=== PATIENT | male | born 1955 | race Caucasian/White ===

== ENCOUNTER 2017-11-14 10:20 | Outpatient (CLI) | payer BC ==
--- NOTE | 2017-11-14 13:14 | CT ---
CT ABDOMEN AND PELVIS WITH AND WITHOUT IV CONTRAST: HISTORY: Hematuria. Microhematuria. FINDINGS: The lung bases are clear. There are a few tiny, low density lesions in the liver, likely cysts, the largest measuring about 18 mm and located in the left lobe of the liver. No calcified gallstones are seen. The spleen, pancreas, and adrenal glands are normal. No free air, free fluid, or lymphadenop athy is seen in the abdomen or pelvis. No calculi are noted in the kidneys, ureters, or urinary bladder. Post contrast images demonstrate n o evidence of an enhancing solid mass. There are small, low density lesions in the left kidney, the largest measuring 1 cm, likely cysts. The prostate is enlarged. The small bowel loops are not abnormally dilated. There is fecal material in the colon. There are v ascular calcifications without evidence of aneurysmal dilatation of the abdominal aorta. There are d egenerative changes in the spine. There is a small fat-containing inguinal hernia. IMPRESSION: 1. No CT evidence of urinary tract calculi or obstruction. 2. Probable hepatic and left renal cysts. 3. Prostatic enlargement. POS: [facility]
== END 2017-11-14 10:21 | disposition home or self-care (01) ==
LOC: SCSCT 10:20
PROVIDERS: ATTEND Urology
DX: R31.29 Other microscopic hematuria (principal); N40.0 Benign prostatic hyperplasia without lower urinary tract symptoms
CPT/HCPCS: 74177; 82565

== ENCOUNTER 2019-02-25 14:11 | Outpatient (CLI) | payer BC ==
--- NOTE | 2019-02-25 16:19 | MRI ---
MR OF THE PELVIS WITH AND WITHOUT CONTRAST INDICATION: Elevated PSA COMPARISON: None TECHNIQUE: Multiplanar, multisequence MR images were obtained of the pelvis with and without IV contr ast. 15 cc of MultiHance was utilized for the examination. The examination was reviewed on a separate [employer] 3-D workstation for multiplanar metric evaluation. FINDINGS: Prostate size: The prostate measured 6.7 x 3.9 x 5.4cm. 57.10 cc. Peripheral zone: No area of restricted diffusion is seen. There are are wavy areas of T2 hypointensit y seen within the peripheral zone which can be secondary to prostatitis. Central zone: There are mildly prominent BPH nodule seen within the central zone. There is slight pro minence of the superior aspect of the central zone that protrudes into the base of the bladder. Neural vasculature: No evidence of neurovascular invasion. Regional lymphadenopathy: None Dynamic contrast enhancement: Negative. Osseous structures: No suspicious osseous lesion is identified. Additional findings: None.. IMPRESSION: 1. PIRADS 2- Low (clinically significant cancer is unlikely to be present.)
== END 2019-02-25 14:12 | disposition home or self-care (01) ==
LOC: TBSIIMAG 14:11
PROVIDERS: ATTEND Urology
DX: R97.20 Elevated prostate specific antigen [PSA] (principal)
CPT/HCPCS: 72197; 82565

== ENCOUNTER 2020-12-06 11:15 | Inpatient (IN) | payer BC, MEDICARE ==
[2020-12-14] MEDS ORDERED: ceFOXitin 1 GM VIAL ONE ×2 (08:37→12:26)
[2020-12-14] MEDS ORDERED: Ketorolac Tromethamine 30 MG/ML VIAL ONE (08:37)
[2020-12-14] MEDS ORDERED: Acetaminophen 500 MG TAB ONE (08:37)
[2020-12-14] MEDS ORDERED: cefOXitin Sodium/Dextrose 2 GM/50 ML BAG ONE (08:38)
[2020-12-14] MEDS ORDERED: Fentanyl 100 MCG/2 ML VIAL ONE (09:38)
[2020-12-14] MEDS ORDERED: Midazolam HCl 2 mg/2 ml Vial ONE ×2 (09:38→09:55)
[2020-12-14] MEDS ORDERED: Bupivacaine 0.25% HCL 30 ML VIAL ONE (09:38)
[2020-12-14] MEDS ORDERED: Lidocaine 1% w/Epinephrine 1:100K 20 ML VIAL ONE (09:38)
[2020-12-14] MEDS ORDERED: Fentanyl 250 MCG/5 ML VIAL ONE (09:55)
[2020-12-14] MEDS ORDERED: Phenylephrine 10 MG/ML VIAL ONE (09:55)
[2020-12-14] MEDS ORDERED: Lidocaine 1% (PF) 30 ML VIAL ONE (09:58)
[2020-12-14] MEDS ORDERED: Dexamethasone 20 MG/5 ML VIAL ONE (10:36)
[2020-12-14] MEDS ORDERED: PHENYLEPHRINE-NS 100 MCG/ML 10 ML SYRINGE ONE (10:36)
[2020-12-14] MEDS ORDERED: ePHEDrine 50 MG/ML VIAL ONE (10:36)
[2020-12-14] MEDS ORDERED: PROPOFOL 200 MG/20 ML VIAL ONE (10:36)
[2020-12-14] MEDS ORDERED: Glycopyrrolate 0.2 MG/ML 5 ML SYRINGE ONE (10:36)
[2020-12-14] MEDS ORDERED: Ondansetron PF 4 MG/2 ML Vial ONE ×2 (10:36)
[2020-12-14] MEDS ORDERED: Bupivacaine HCl 0.5%/Epinephrine 1:200,000/PF 30 ml Vial ONE (10:36)
[2020-12-14] MEDS ORDERED: Lidocaine 1% PF 5 ML VIAL ONE (10:36)
[2020-12-14] MEDS ORDERED: Rocuronium Bromide 10 MG/ML (10ML VIAL) ONE (10:36)
[2020-12-14] MEDS ORDERED: Indocyanine Green 25 MG/10 ML VIAL ONE (12:06)
[2020-12-14] MEDS ORDERED: Promethazine HCl 25 MG/ML VIAL IVPB PRN (14:02)
[2020-12-14] MEDS ORDERED: Promethazine HCl 25 MG/ML VIAL IM PRN ×3 (14:02→23:05)
[2020-12-14] MEDS ORDERED: Ondansetron HCl/PF 4 MG/2 ML Vial IVP PRN (14:02)
[2020-12-14] MEDS ORDERED: hydrALAZINE 20 MG/ML VIAL SLOW IVP PRN ×2 (14:11→23:02)
[2020-12-14] MEDS ORDERED: Morphine 4 MG/ML VIAL SLOW IVP PRN ×2 (14:11→23:03)
[2020-12-14] MEDS ORDERED: Morphine 2 MG/ML VIAL SLOW IVP PRN (14:11)
[2020-12-14] MEDS ORDERED: Ondansetron PF 4 MG/2 ML Vial IVP PRN ×2 (14:11→23:05)
[2020-12-14] MEDS ORDERED: D5 1/2 NS w/20 mEq KCL 1,000 ML ONE (14:43)
[2020-12-14] MEDS: D5 1/2 NS w/20 mEq KCL 1,000 ML IV SCH ×3 (15:25→23:40)
[2020-12-14] MEDS ORDERED: Tamsulosin HCl 0.4 MG CAP PO SCH (16:15)
[2020-12-14] MEDS ORDERED: Ketorolac Tromethamine 30 MG/ML VIAL IVP SCH (18:00)
[2020-12-14] MEDS ORDERED: Famotidine/PF 20 mg/2ml Vial SLOW IVP SCH (21:00)
[2020-12-14] MEDS ORDERED: Famotidine 20 MG TAB PO SCH (21:00)
[2020-12-14] MEDS ORDERED: Enoxaparin Sodium 40 MG/0.4 ML SYRINGE SC SCH (21:00)
[2020-12-14] MEDS ORDERED: HYDROcodone/Acetaminophen 7.5/325 mg Tablet PO PRN ×2 (23:03)
[2020-12-14] MEDS: Ketorolac Tromethamine 30 MG/ML VIAL IVP SCH (23:39)
[2020-12-15] MEDS: Ketorolac Tromethamine 30 MG/ML VIAL IVP SCH ×2 (06:16→12:02)
[2020-12-15 07:18] LABS: #Monocytes 1.2 thou/uL (0.11-0.59); #Neutrophils 12.4 thou/uL (1.40-6.50); %Basophils 0.3 % (0.0-1.0); %Eosinophils 0.1 % (0.0-10.0); %Lymphocytes 6.5 % (21.0-51.0); %Neutrophils 85.1 % (42.0-75.0); Hemoglobin 11.4 g/dL (14.0-18.0); Mean Corpuscular HGB CONC 32.7 g/dL (32.0-36.0); Mean Corpuscular Hemoglobin 32.3 pg (27.0-31.0); Mean Corpuscular Volume 98.9 fL (78.0-98.0); Mean Platelet Volume 8.7 fL (7.4-10.4); Platelet Count 257 thou/uL (130-400); RBC Distribution Width 12.1 % (11.5-14.5); Red Blood Cell (RBC) Count 3.53 mill/uL (4.70-6.10); White Blood Cell (WBC) Count 14.6 thou/uL (4.8-10.8)
[2020-12-15 07:35] LABS: Anion Gap 13 mmol/L (10-20); BUN (Urea Nitrogen) 16 mg/dL (8.4-25.7); Calc. Creatinine Clearance 58 mL/min (70-130); Calcium 7.8 mg/dL (7.8-10.44); Carbon Dioxide 21 mmol/L (23-31); Chloride 109 mmol/L (98-107); Glucose 131 mg/dL (80-115); Potassium 4.8 mmol/L (3.5-5.1); Sodium 138 mmol/L (136-145)
[2020-12-15] MEDS: D5 1/2 NS w/20 mEq KCL 1,000 ML IV SCH (08:34)
[2020-12-15] MEDS: Famotidine 20 MG TAB PO SCH ×2 (08:35→21:03)
[2020-12-15] MEDS: Famotidine/PF 20 mg/2ml Vial SLOW IVP SCH ×2 (08:35→21:00)
[2020-12-15] MEDS: Tamsulosin HCl 0.4 MG CAP PO SCH (08:35)
[2020-12-15] MEDS ORDERED: D5 LR w/20 mEq KCL 1,000 ML IV SCH (08:45)
[2020-12-15] MEDS ORDERED: Losartan 25 MG TAB PO SCH (09:00)
[2020-12-15] MEDS: Losartan 25 MG TAB PO SCH (09:51)
[2020-12-15] MEDS ORDERED: HYDROcodone/Acetaminophen 7.5/325 mg Tablet PO PRN ×2 (14:03)
[2020-12-15] MEDS: Acetaminophen 500 MG TAB PO PRN (17:33)
[2020-12-15] MEDS ORDERED: Enoxaparin Sodium 40 MG/0.4 ML SYRINGE SC SCH (21:00)
[2020-12-16] MEDS: Acetaminophen 500 MG TAB PO PRN ×2 (01:12→09:42)
[2020-12-16 07:01] LABS: #Eosinphils 0.1 thou/uL (0.0-0.7); #Lymphocytes 2.3 thou/uL (1.20-3.40); #Monocytes 1.7 thou/uL (0.11-0.59); %Basophils 0.3 % (0.0-1.0); %Eosinophils 0.4 % (0.0-10.0); %Lymphocytes 15.4 % (21.0-51.0); %Monocytes 11.2 % (0.0-10.0); %Neutrophils 72.7 % (42.0-75.0); Mean Corpuscular HGB CONC 32.1 g/dL (32.0-36.0); Mean Corpuscular Hemoglobin 32.2 pg (27.0-31.0); Mean Platelet Volume 8.9 fL (7.4-10.4); Platelet Count 262 thou/uL (130-400); RBC Distribution Width 12.2 % (11.5-14.5); Red Blood Cell (RBC) Count 3.74 mill/uL (4.70-6.10); White Blood Cell (WBC) Count 15.1 thou/uL (4.8-10.8)
[2020-12-16 07:13] LABS: Anion Gap 12 mmol/L (10-20); BUN (Urea Nitrogen) 13 mg/dL (8.4-25.7); Calc. Creatinine Clearance 60 mL/min (70-130); Calcium 8.6 mg/dL (7.8-10.44); Carbon Dioxide 24 mmol/L (23-31); Chloride 110 mmol/L (98-107); Glucose 99 mg/dL (80-115); Potassium 4.5 mmol/L (3.5-5.1); Sodium 141 mmol/L (136-145)
[2020-12-16] MEDS: Famotidine 20 MG TAB PO SCH ×2 (08:40→20:22)
[2020-12-16] MEDS: Famotidine/PF 20 mg/2ml Vial SLOW IVP SCH ×3 (08:41→20:20)
[2020-12-16] MEDS: Tamsulosin HCl 0.4 MG CAP PO SCH (08:41)
[2020-12-17 06:44] LABS: #Basophils 0.1 thou/uL (0.0-0.2); #Eosinphils 0.3 thou/uL (0.0-0.7); #Lymphocytes 1.6 thou/uL (1.20-3.40); #Monocytes 1.4 thou/uL (0.11-0.59); #Neutrophils 10.3 thou/uL (1.40-6.50); %Basophils 0.6 % (0.0-1.0); %Eosinophils 2.5 % (0.0-10.0); %Lymphocytes 11.7 % (21.0-51.0); %Monocytes 10.3 % (0.0-10.0); %Neutrophils 75.1 % (42.0-75.0); Hemoglobin 12.2 g/dL (14.0-18.0); Mean Corpuscular HGB CONC 32.2 g/dL (32.0-36.0); Mean Corpuscular Volume 99.5 fL (78.0-98.0); Mean Platelet Volume 9.2 fL (7.4-10.4); Platelet Count 274 thou/uL (130-400); RBC Distribution Width 12.1 % (11.5-14.5); Red Blood Cell (RBC) Count 3.83 mill/uL (4.70-6.10); White Blood Cell (WBC) Count 13.8 thou/uL (4.8-10.8)
[2020-12-17] MEDS: Famotidine 20 MG TAB PO SCH ×2 (10:15→19:58)
[2020-12-17] MEDS: Tamsulosin HCl 0.4 MG CAP PO SCH (10:15)
[2020-12-17] MEDS: Losartan 25 MG TAB PO SCH (10:15)
[2020-12-17] MEDS: Famotidine/PF 20 mg/2ml Vial SLOW IVP SCH (11:39)
[2020-12-17] MEDS: Dextrose 5%-Lactated Ringers 1,000 ML IV SCH (14:52)
[2020-12-18] MEDS: Famotidine/PF 20 mg/2ml Vial SLOW IVP SCH ×3 (01:27→23:10)
[2020-12-18] MEDS ORDERED: Diltiazem 125 MG in Sodium Chloride 0.9% 100 ML IVPB SCH ×2 (02:30→04:15)
[2020-12-18 02:49] LABS: #Basophils 0.1 thou/uL (0.0-0.2); #Eosinphils 0.6 thou/uL (0.0-0.7); #Lymphocytes 1.8 thou/uL (1.20-3.40); #Monocytes 1.4 thou/uL (0.11-0.59); #Neutrophils 9.5 thou/uL (1.40-6.50); %Basophils 0.5 % (0.0-1.0); %Eosinophils 4.4 % (0.0-10.0); %Lymphocytes 13.2 % (21.0-51.0); %Monocytes 10.5 % (0.0-10.0); %Neutrophils 71.5 % (42.0-75.0); Hemoglobin 13.1 g/dL (14.0-18.0); Mean Corpuscular HGB CONC 33.3 g/dL (32.0-36.0); Mean Platelet Volume 8.5 fL (7.4-10.4); Platelet Count 290 thou/uL (130-400); RBC Distribution Width 11.9 % (11.5-14.5); Red Blood Cell (RBC) Count 3.98 mill/uL (4.70-6.10); White Blood Cell (WBC) Count 13.3 thou/uL (4.8-10.8)
[2020-12-18 03:15] LABS: Anion Gap 14 mmol/L (10-20); BUN (Urea Nitrogen) 10 mg/dL (8.4-25.7); Calc. Creatinine Clearance 68 mL/min (70-130); Carbon Dioxide 20 mmol/L (23-31); Chloride 107 mmol/L (98-107); Glucose 104 mg/dL (80-115); Magnesium 1.6 mg/dL (1.6-2.6); Potassium 4.1 mmol/L (3.5-5.1); Sodium 137 mmol/L (136-145)
[2020-12-18] MEDS: Dextrose 5%-Lactated Ringers 1,000 ML IV SCH ×2 (04:19→19:34)
[2020-12-18] MEDS ORDERED: Magnesium 2 GM/50 ML 2 GM in Premix Bag 1 BAG IVPB SCH (04:30)
[2020-12-18 05:15] LABS: Free T4 (Free Thyroxine) 0.99 ng/dL (0.70-1.48)
[2020-12-18] MEDS ORDERED: Metoprolol Tartrate 25 MG TAB PO SCH (09:00)
[2020-12-18] MEDS ORDERED: Digoxin 0.5 MG/2 ML AMP SLOW IVP SCH (10:00)
[2020-12-18] MEDS: Famotidine 20 MG TAB PO SCH ×2 (11:13→23:10)
[2020-12-18] MEDS: Tamsulosin HCl 0.4 MG CAP PO SCH (11:15)
[2020-12-18] MEDS ORDERED: Iopamidol 370 76% 100 ML VIAL ONE (13:47)
[2020-12-18] MEDS ORDERED: Diltiazem HCl SR 60 mg Capsule PO SCH (14:00)
[2020-12-18] MEDS: Metoprolol Tartrate 50 MG TAB PO SCH (23:10)
[2020-12-19 05:52] LABS: Magnesium 1.8 mg/dL (1.6-2.6)
[2020-12-19 09:52] LABS: #Eosinphils 0.6 thou/uL (0.0-0.7); #Lymphocytes 1.2 thou/uL (1.20-3.40); #Monocytes 1.5 thou/uL (0.11-0.59); #Neutrophils 7.2 thou/uL (1.40-6.50); %Basophils 0.2 % (0.0-1.0); %Eosinophils 6.1 % (0.0-10.0); %Lymphocytes 11.2 % (21.0-51.0); %Monocytes 14.3 % (0.0-10.0); %Neutrophils 68.1 % (42.0-75.0); Mean Corpuscular HGB CONC 33.2 g/dL (32.0-36.0); Mean Corpuscular Hemoglobin 32.8 pg (27.0-31.0); Mean Platelet Volume 8.1 fL (7.4-10.4); Platelet Count 314 thou/uL (130-400); Red Blood Cell (RBC) Count 3.64 mill/uL (4.70-6.10); White Blood Cell (WBC) Count 10.6 thou/uL (4.8-10.8)
[2020-12-19 09:59] LABS: INR-International Normal Ratio 1.1; PTT 30.1 sec (22.9-36.1); Prothrombin Time 13.9 sec (12.0-14.7)
[2020-12-19] MEDS: Dextrose 5%-Lactated Ringers 1,000 ML IV SCH ×2 (10:08→20:33)
[2020-12-19] MEDS: Metoprolol Tartrate 50 MG TAB PO SCH ×2 (10:09→20:30)
[2020-12-19] MEDS: Famotidine/PF 20 mg/2ml Vial SLOW IVP SCH ×2 (10:10→20:30)
[2020-12-19] MEDS: Tamsulosin HCl 0.4 MG CAP PO SCH (10:16)
[2020-12-19 10:18] LABS: ALT (SGPT) 17 U/L (8-55); AST (SGOT) 15 U/L (5-34); Albumin 3.3 g/dL (3.4-4.8); Alkaline Phosphatase 54 U/L (40-110); Anion Gap 11 mmol/L (10-20); BUN (Urea Nitrogen) 12 mg/dL (8.4-25.7); Bilirubin, Total 0.5 mg/dL (0.2-1.2); Calc. Creatinine Clearance 64 mL/min (70-130); Calcium 8.7 mg/dL (7.8-10.44); Carbon Dioxide 23 mmol/L (23-31); Chloride 107 mmol/L (98-107); Globulin 2.4 g/dL (2.4-3.5); Glucose 105 mg/dL (80-115); Potassium 4.1 mmol/L (3.5-5.1); Protein, Total 5.7 g/dL (5.8-8.1); Sodium 137 mmol/L (136-145)
[2020-12-19] MEDS: Acetaminophen 500 MG TAB PO PRN (11:39)
[2020-12-19] MEDS: Morphine 2 MG/ML VIAL SLOW IVP PRN (12:22)
[2020-12-19 15:51] VITALS: BMI 239206.0
[2020-12-19] MEDS: Famotidine 20 MG TAB PO SCH (20:30)
[2020-12-20] MEDS: Morphine 2 MG/ML VIAL SLOW IVP PRN ×2 (02:21→04:22)
[2020-12-20] MEDS: Dextrose 5%-Lactated Ringers 1,000 ML IV SCH ×2 (02:25→20:29)
[2020-12-20 04:57] LABS: PTT 31.6 sec (22.9-36.1); Prothrombin Time 13.5 sec (12.0-14.7)
[2020-12-20 05:05] LABS: Hemoglobin 12.4 g/dL (14.0-18.0); Mean Corpuscular Hemoglobin 32.7 pg (27.0-31.0); Mean Platelet Volume 8.3 fL (7.4-10.4); Platelet Count 356 thou/uL (130-400); RBC Distribution Width 11.9 % (11.5-14.5); Red Blood Cell (RBC) Count 3.79 mill/uL (4.70-6.10); White Blood Cell (WBC) Count 8.8 thou/uL (4.8-10.8)
[2020-12-20 05:09] LABS: Magnesium 1.8 mg/dL (1.6-2.6)
[2020-12-20 05:52] LABS: Band 13 % (5-11); Eosinophils 2 % (0-10); Lymphocytes 21 % (21-51); MDiff Complete? YES; Monocytes 19 % (0-10); Neutrophil 45 % (42-75)
[2020-12-20 08:43] LABS: #Basophils 0.1 thou/uL (0.0-0.2); #Eosinphils 0.2 thou/uL (0.0-0.7); #Lymphocytes 0.9 thou/uL (1.20-3.40); #Monocytes 1.1 thou/uL (0.11-0.59); #Neutrophils 5.2 thou/uL (1.40-6.50); %Basophils 0.7 % (0.0-1.0); %Eosinophils 2.5 % (0.0-10.0); %Lymphocytes 12.4 % (21.0-51.0); %Monocytes 14.9 % (0.0-10.0); %Neutrophils 69.5 % (42.0-75.0); Hemoglobin 11.9 g/dL (14.0-18.0); Mean Corpuscular HGB CONC 32.5 g/dL (32.0-36.0); Mean Corpuscular Hemoglobin 32.3 pg (27.0-31.0); Mean Corpuscular Volume 99.3 fL (78.0-98.0); Mean Platelet Volume 8.2 fL (7.4-10.4); Platelet Count 379 thou/uL (130-400); Red Blood Cell (RBC) Count 3.69 mill/uL (4.70-6.10); White Blood Cell (WBC) Count 7.4 thou/uL (4.8-10.8)
[2020-12-20 09:11] LABS: ALT (SGPT) 20 U/L (8-55); AST (SGOT) 17 U/L (5-34); Albumin 3.1 g/dL (3.4-4.8); Alkaline Phosphatase 53 U/L (40-110); Anion Gap 10 mmol/L (10-20); BUN (Urea Nitrogen) 15 mg/dL (8.4-25.7); Bilirubin, Total 0.6 mg/dL (0.2-1.2); Calc. Creatinine Clearance 71 mL/min (70-130); Calcium 8.6 mg/dL (7.8-10.44); Carbon Dioxide 25 mmol/L (23-31); Chloride 104 mmol/L (98-107); Globulin 2.5 g/dL (2.4-3.5); Glucose 117 mg/dL (80-115); Potassium 4.1 mmol/L (3.5-5.1); Protein, Total 5.6 g/dL (5.8-8.1); Sodium 135 mmol/L (136-145)
[2020-12-20] MEDS: Tamsulosin HCl 0.4 MG CAP PO SCH ×2 (09:36→09:40)
[2020-12-20] MEDS: Metoprolol Tartrate 50 MG TAB PO SCH ×2 (09:37→20:52)
[2020-12-20] MEDS: Famotidine 20 MG TAB PO SCH ×2 (09:39→20:51)
[2020-12-20] MEDS: Famotidine/PF 20 mg/2ml Vial SLOW IVP SCH ×2 (10:31→20:29)
[2020-12-20] MEDS ORDERED: MD-Gastroview 120 ML BOT ONE (10:35)
[2020-12-20 16:36] LABS: Bacteria/HPF None Seen HPF (None Seen); Bilirubin Negative (Negative); Blood, Urine 2+ (Negative); Clarity Clear (Clear); Glucose, Urine (Dipstick) Normal (Negative); Ketone, Urine 20 mg/dL (Negative); Leukocyte Negative Leu/uL (Negative); Nitrite Negative (Negative); Protein, Urine (Dipstick) 100 mg/dL (Neg-Trace); Specific Gravity, Urine 1.026 (1.002-1.036); Squamous Epithelial 0-3 HPF (0-3); WBC/HPF 0-3 HPF (0-3); pH, Urine 5.5 (5.0-9.0)
[2020-12-21] MEDS ORDERED: Polyethylene Glycol 3350 17 GM Packet PO SCH (10:30)
[2020-12-21] MEDS: Famotidine 20 MG TAB PO SCH ×2 (10:39→20:05)
[2020-12-21] MEDS: Metoprolol Tartrate 50 MG TAB PO SCH ×2 (10:39→20:05)
[2020-12-21] MEDS: Dextrose 5%-Lactated Ringers 1,000 ML IV SCH (10:41)
[2020-12-21] MEDS: Famotidine/PF 20 mg/2ml Vial SLOW IVP SCH ×2 (11:08→19:54)
[2020-12-22 07:14] LABS: #Basophils 0.1 thou/uL (0.0-0.2); #Eosinphils 0.8 thou/uL (0.0-0.7); #Lymphocytes 2.3 thou/uL (1.20-3.40); #Monocytes 1.2 thou/uL (0.11-0.59); #Neutrophils 4.4 thou/uL (1.40-6.50); %Basophils 0.9 % (0.0-1.0); %Eosinophils 9.4 % (0.0-10.0); %Monocytes 14.1 % (0.0-10.0); %Neutrophils 49.6 % (42.0-75.0); Hemoglobin 10.8 g/dL (14.0-18.0); Mean Corpuscular HGB CONC 34.3 g/dL (32.0-36.0); Mean Corpuscular Hemoglobin 33.6 pg (27.0-31.0); Mean Platelet Volume 8.7 fL (7.4-10.4); Platelet Count 418 thou/uL (130-400); RBC Distribution Width 11.8 % (11.5-14.5); Red Blood Cell (RBC) Count 3.21 mill/uL (4.70-6.10); White Blood Cell (WBC) Count 8.8 thou/uL (4.8-10.8)
[2020-12-22 07:37] LABS: Anion Gap 13 mmol/L (10-20); BUN (Urea Nitrogen) 18 mg/dL (8.4-25.7); Calc. Creatinine Clearance 78 mL/min (70-130); Calcium 8.2 mg/dL (7.8-10.44); Carbon Dioxide 20 mmol/L (23-31); Chloride 107 mmol/L (98-107); Glucose 95 mg/dL (80-115); Potassium 3.9 mmol/L (3.5-5.1); Sodium 136 mmol/L (136-145)
[2020-12-22 08:21] VITALS: TEMP 98
[2020-12-22] MEDS: Metoprolol Tartrate 50 MG TAB PO SCH (08:21)
[2020-12-22] MEDS: Famotidine 20 MG TAB PO SCH (08:21)
[2020-12-22] MEDS: Famotidine/PF 20 mg/2ml Vial SLOW IVP SCH (08:22)
[2020-12-22] MEDS ORDERED: Polyethylene Glycol 3350 17 GM Packet PO SCH (09:00)
[2020-12-22 12:18] VITALS: BP 124/70
[2020-12-22] MEDS: Dextrose 5%-Lactated Ringers 1,000 ML IV SCH (14:25)
== END 2020-12-22 15:06 | disposition home or self-care (01) | DRG 330 ==
LOC: 2NO 12-14 08:14 → SURG A 12-14 15:22 → 2SE 12-18 01:50 → 2NO 12-19 19:36 → SJJU 12-20 16:21 → 2NO 12-20 16:43 → SJJU 12-20 18:03
PROVIDERS: ADMIT Specialist; ATTEND Internal Medicine
PROC: 0DTF4ZZ Resection of Right Large Intestine, Percutaneous Endoscopic Approach (ICD-10-PCS; principal; 2020-12-14)
PROC: 8E0W4CZ Robotic Assisted Procedure of Trunk Region, Percutaneous Endoscopic Approach (ICD-10-PCS; 2020-12-14)
DX: C18.2 Malignant neoplasm of ascending colon (principal); K56.7 Ileus, unspecified; K92.1 Melena; I48.91 Unspecified atrial fibrillation; I10 Essential (primary) hypertension; N40.0 Benign prostatic hyperplasia without lower urinary tract symptoms; D64.9 Anemia, unspecified; E78.5 Hyperlipidemia, unspecified; N48.1 Balanitis; F17.210 Nicotine dependence, cigarettes, uncomplicated; Z79.899 Other long term (current) drug therapy; Z88.1 Allergy status to other antibiotic agents; Z88.8 Allergy status to other drugs, medicaments and biological substances; Z90.89 Acquired absence of other organs
CPT/HCPCS: 36415; 36416; 71275; 74018; 74270; 80048; 80053; 81003; 81015; 83735; 83880; 84439; 84443; 84481; 85025; 85379; 85610; 85730; 88307; 93005; 93010; 93306; J0694; J1100; J1650; J1885; J2001; J2250; J2270; J2370; J2405; J2704; J3010; J3475; J3480; J3490; Q9963; Q9967; S0020; S0028

== ENCOUNTER 2020-12-09 10:42 | Outpatient (CLI) | payer BC ==
[2020-12-09 12:05] LABS: #Basophils 0.1 10x3/uL (0.0-0.2); #Eosinphils 0.5 10x3/uL (0.0-0.5); #Neutrophils 4.8 10x3/uL (1.5-8.4); %Basophils 1.2 % (0.0-2.0); %Eosinophils 5.5 % (0.0-6.0); %Lymphocytes 23.7 % (18.0-47.0); %Monocytes 11.5 % (0.0-10.0); %Neutrophils 57.7 % (40.0-75.0); Hemoglobin 14.5 g/dL (13.5-17.5); Mean Corpuscular HGB CONC 32.5 g/dL (32.0-36.0); Mean Corpuscular Hemoglobin 31.9 pg (27.0-33.0); Platelet Count 334 10x3/uL (150-450); RBC Distribution Width 13.9 % (11.5-14.5); Red Blood Cell (RBC) Count 4.55 10x6/uL (4.32-5.72); White Blood Cell (WBC) Count 8.4 10x3/uL (3.5-10.5)
[2020-12-09 12:12] LABS: Anion Gap 14 mmol/L (10-20); BUN (Urea Nitrogen) 15 mg/dL (8.4-25.7); Calc. Creatinine Clearance 0 mL/min (70-130); Calcium 10.1 mg/dL (7.8-10.44); Carbon Dioxide 24 mmol/L (23-31); Chloride 109 mmol/L (98-107); Glucose 76 mg/dL (80-115); Potassium 4.8 mmol/L (3.5-5.1); Sodium 142 mmol/L (136-145)
[2020-12-09 14:30] LABS: Hemoglobin A1c 5.5 % (4.0-6.0)
[2020-12-10 00:34] LABS: SARS-CoV-2 PCR by NAA Not Detected (NotDetected)
== END 2020-12-09 10:43 | disposition home or self-care (01) ==
LOC: LABBT 10:42
PROVIDERS: ATTEND Specialist
DX: Z01.818 Encounter for other preprocedural examination (principal); K63.89 Other specified diseases of intestine; Z20.822 Contact with and (suspected) exposure to COVID-19
CPT/HCPCS: 71046; 80048; 83036; 85025; 93005; 93010; U0003; U0005